=== PATIENT | male | born 1980 | race Caucasian/White ===

== ENCOUNTER 2019-10-18 20:53 | Emergency (ER) | payer MEDICAID, OTHER ==
[~2019-10-18] VITALS: Ht 170.2 cm; Wt 90.3 kg
[~2019-10-18 20:53] MED LIST: ARIP10TA9
[2019-10-18 20:54] VITALS: BP 159/102
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
[2019-10-18] MEDS ORDERED: TETRAcaine 5 ML BOTTLE EACHEYE ONE (21:00)
[2019-10-18] MEDS ORDERED: LORAZEPAM 1 MG TABLET ONE (21:05)
[2019-10-18] MEDS ORDERED: ONDANSETRON 4 MG TAB.RAPDIS ONE (21:25)
[2019-10-18] MEDS ORDERED: LORAZEPAM 1 MG TABLET PO ONE (21:30)
[2019-10-18] MEDS ORDERED: ONDANSETRON 4 MG TAB.RAPDIS SL ONE (21:30)
--- NOTE | 2019-10-18 22:09 | NUR ---
CALLED [facility] FOR REPORT
--- NOTE | 2019-10-18 22:20 | NUR ---
CALLED [facility], SPOKE TO [employer] [phone] WHO WILL DISPATCH UNIT TO TAKE REPORT FOR PT IN WAITING ROOM
--- NOTE | 2019-10-18 22:35 | NUR ---
[facility] OFFICERS TALKING TO PT.
--- NOTE | 2019-10-18 22:57 | NUR ---
Patient discharged to home in stable condition. Written and verbal after care instructions given. Patient verbalizes understanding of instruction.
== END 2019-10-18 22:58 | disposition home or self-care (01) ==
LOC: ER 20:54
DX: T65.893A Toxic effect of other specified substances, assault, initial encounter (principal); F41.9 Anxiety disorder, unspecified; Z79.899 Other long term (current) drug therapy; Y92.89 Other specified places as the place of occurrence of the external cause
CPT/HCPCS: 99284; J7030; Q0162